=== PATIENT | female | born 1995 | race Caucasian/White ===

== ENCOUNTER 2018-12-23 09:37 | Observation (INO) | payer OTHER ==
[2019-01-25] MEDS ORDERED: GLYB2.5T2 PO (18:36)
[2019-01-29] MEDS ORDERED: DOCU-153 PO (10:14)
[2019-01-29] MEDS ORDERED: OXYC1TAB15 PO (10:14)
[2019-01-29] MEDS ORDERED: IBUP-1027 PO (10:14)
== END 2018-12-23 10:45 | disposition home or self-care (01) ==
LOC: 3 SO LND 09:37
PROVIDERS: ADMIT Obstetrics & Gynecology; ATTEND Obstetrics & Gynecology
DX: O24.410 Gestational diabetes mellitus in pregnancy, diet controlled (principal); Z3A.35 35 weeks gestation of pregnancy
CPT/HCPCS: G0378; G0379; 59025

== ENCOUNTER 2018-12-30 11:09 | Observation (INO) | payer OTHER | END 2018-12-30 12:43 | disposition home or self-care (01) | LOC: 3 SO LND 11:09 | PROVIDERS: ADMIT Obstetrics & Gynecology; ATTEND Obstetrics & Gynecology | DX: O24.419 Gestational diabetes mellitus in pregnancy, unspecified control (principal); Z3A.35 35 weeks gestation of pregnancy | CPT/HCPCS: G0378; G0379; 59025 ==

== ENCOUNTER 2019-01-06 10:45 | Observation (INO) | payer OTHER ==
--- NOTE | 2019-01-06 12:37 | RAD ---
BIOPHY PRO W/O NON STR ADD' History: Gestational diabetes Comparison: None. Findings: Multiple sonographic images from a biophysical profile are submitted. There was 8 of 8 scoring for the biophysical profile which assessed for breathing movements, motion, tone, amniotic fluid volume. Estimated ADAM was 15.3 cm. There is cephalic presentation of the single intrauterine fetus. There is anterior placenta. Length of exam was reported at 15 minutes. heart rate 157 bpm. Biometry data are as follows: Biparietal diameter 9.36 cm corresponds 38 weeks 1 day Head circumference 33.38 cm corresponds with 38 weeks 1 day Abdominal circumference 34.03 cm corresponds with 38 weeks 0 days Femur length 7.59 cm corresponds with 38 weeks 6 days Estimated weight 3420 g +/- 506 g corresponding with the 78th percentile Adjusted ultrasound age 38 weeks 2 days with estimated delivery date of 01/18/2019 LMP age 36 weeks 3 days with estimated delivery date of 01/31/2019 HC/AC ratio 0.98. Impression: 1. There was 8 of 8 scoring for the biophysical profile. There is a single viable intrauterine fetus in cephalic presentation, adjusted ultrasound age 38 weeks 2 days. Electronically signed by: Ismael Carrasquillo MD (01/06/2019 12:34 PM) [id number]
[2019-01-25] MEDS ORDERED: GLYB2.5T2 PO (18:36)
[2019-01-29] MEDS ORDERED: IBUP-1027 PO (10:14)
[2019-01-29] MEDS ORDERED: OXYC1TAB15 PO (10:14)
[2019-01-29] MEDS ORDERED: DOCU-153 PO (10:14)
== END 2019-01-06 12:22 | disposition home or self-care (01) ==
LOC: 3 SO LND 10:45
PROVIDERS: ADMIT Obstetrics & Gynecology; ATTEND Obstetrics & Gynecology
DX: O24.425 Gestational diabetes mellitus in childbirth, controlled by oral hypoglycemic drugs (principal); Z3A.36 36 weeks gestation of pregnancy
CPT/HCPCS: 76819; G0378; G0379; 59025

== ENCOUNTER 2019-01-13 11:12 | Observation (INO) | payer OTHER ==
[2019-01-13] MEDS ORDERED: IV RINGERS,LACTATED 1000ML 1,000 ML IV SCH (11:16)
--- NOTE | 2019-01-13 16:56 | RAD ---
Biophysical profile: Clinical indications: Gestational diabetes. Findings: A single intrauterine is present in the cephalic position. heart rate is 182. breathing movements: 2. motion: 2. tone: 2. Amniotic fluid volume: 2. Therefore, the biophysical profile score is 8 out of 8. Cervical length-not visualized. ADAM using the 4 quadrant method is 16.6 cm. Impression: Biophysical profile score is 8 out of 8. Electronically signed by: Ranjith Camacho MD (01/13/2019 4:53 PM) [facility]
== END 2019-01-13 14:30 | disposition home or self-care (01) ==
LOC: 3 SO LND 11:12
PROVIDERS: ADMIT Obstetrics & Gynecology; ATTEND Obstetrics & Gynecology
DX: O24.419 Gestational diabetes mellitus in pregnancy, unspecified control (principal); Z3A.37 37 weeks gestation of pregnancy
CPT/HCPCS: 76819; G0378; G0379; 59025

== ENCOUNTER 2019-01-19 15:56 | Observation (INO) | payer OTHER ==
[2019-01-19] MEDS ORDERED: IV RINGERS,LACTATED 1000ML 1,000 ML IV SCH (16:30)
--- NOTE | 2019-01-19 17:54 | RAD ---
BIOPHY PRO W/O NON STR ADD', OB LIMITED History: Gestational diabetes Comparison: January 13, 2019 Findings: Multiple sonographic images of the single intrauterine fetus and images from a biophysical profile are submitted. There was 6 of 8 scoring for the biophysical profile, 0 of 2 scoring for breathing movements. Otherwise there was 2 of 2 scoring for motion, head, and amniotic fluid volume. Reportedly exam lasted about 30 minutes. heart rate was 130 bpm. There is anterior placenta. There is cephalic presentation of the single intrauterine fetus. Estimated ADAM 15.6 cm. anatomy was not fully evaluated. Biometry data are as follows: Biparietal diameter 9.73 cm corresponds with 39 weeks 6 days Head circumference 34.46 cm corresponds with 39 weeks 6 days Abdominal circumference 35.42 cm corresponds with 39 weeks 2 days Femur length 7.66 cm corresponds with 39 weeks 1 day HC/AC ratio within normal limits 0.97 Estimated weight 3782 g +/- 560 g Adjusted ultrasound age 39 weeks 4 days with estimated delivery date by ultrasound 01/22/2019 LMP age 38 weeks 2 days with estimated delivery date 01/31/2019. Impression: 1. There is a single viable intrauterine fetus. There was 6 of 8 scoring for the biophysical profile, 0 of 2 scoring for the breathing movements. Electronically signed by: Ismael Carrasquillo MD (01/19/2019 5:52 PM) [facility]
[2019-01-25] MEDS ORDERED: GLYB2.5T2 PO (18:36)
== END 2019-01-19 18:10 | disposition home or self-care (01) ==
LOC: 3 SO LND 15:56
PROVIDERS: ADMIT Obstetrics & Gynecology; ATTEND Obstetrics & Gynecology
DX: Z34.83 Encounter for supervision of other normal pregnancy, third trimester (principal); Z3A.38 38 weeks gestation of pregnancy
CPT/HCPCS: 76815; 76819; G0378; G0379; 59025

== ENCOUNTER 2019-01-21 08:55 | Observation (INO) | payer OTHER ==
[2019-01-21] MEDS ORDERED: IV RINGERS,LACTATED 1000ML 1,000 ML IV SCH (09:00)
[2019-01-21] MEDS ORDERED: ONDANSETRON PF 4 MG/2 ML VIAL. IV PRN (09:00)
[2019-01-21] MEDS ORDERED: ACETAMINOPHEN 325 MG TABLET. PO PRN (09:00)
--- NOTE | 2019-01-21 10:34 | RAD ---
Examination: BIOPHY PRO W/O NON STR ADD' History: Gestational diabetes Comparison/Correlation: 01/19/2019 biophysical profile Findings: Biophysical profile score of breathing movements, motion, tone, and amniotic fluid are each 2 out of 2. Total score of 8 out of 8. Cephalic lie is present. Amniotic fluid index of 8.2 is present. Anterior location of the placenta is noted. Impression: Biophysical profile score of 8/8. Amniotic fluid index of 8.2 is noticeably decreased since the prior exam where it was 15.6. Electronically signed by: Den Robins MD (01/21/2019 10:31 AM) [facility]
[2019-01-25] MEDS ORDERED: GLYB2.5T2 PO (18:36)
== END 2019-01-21 10:12 | disposition home or self-care (01) ==
LOC: 3 SO LND 08:55
PROVIDERS: ADMIT Obstetrics & Gynecology; ATTEND Obstetrics & Gynecology
DX: O24.419 Gestational diabetes mellitus in pregnancy, unspecified control (principal); Z3A.38 38 weeks gestation of pregnancy
CPT/HCPCS: 76819; G0378; G0379; 59025

== ENCOUNTER 2020-03-04 16:51 | Emergency (ER) | payer OTHER, BC ==
[~2020-03-04] VITALS: Ht 162.6 cm; Wt 90.1 kg
[~2020-03-04 16:51] MED LIST: DOCU-153 PO; GLYB2.5T2 PO; IBUP-1027 PO; OXYC1TAB15 PO
--- NOTE | 2020-03-04 17:39 | RAD ---
INDICATION: Reason: L knee deformity after fall, s/p reduction / Spl. Instructions: / History: COMPARISON: None. IMPRESSION: Left knee: 3 views obtained. Limited evaluation secondary to difficulty with positioning secondary to patient's injury. Subtle lucency at the lower pole the patella. Would correlate with point tendernes s given that an impaction fracture could have this appearance. There is adjacent edema in Hoffa's fat pad. There is also a subtle step-off at the medial tibial plateau therefore a fracture at this site is not excluded. Electronically signed by: Farhat Duong MD (03/04/2020 5:37 PM) [id number]
[2020-03-04] MEDS ORDERED: HYDR15SO6 PO (18:59)
--- NOTE | 2020-03-04 18:59 | ED.ADGEN ---
Past Medical History Past Medical History: No Pertinent History Past Surgical History: Smoking Status: Current Every Day Smoker Alcohol Use: Rarely General Adult EDM: Chief Complaint: LOWEREXTREMITY INJURY HPI: HPI: Patient is a 24 year old female who presents emergency department via EMS with complaints of left knee pain in the left patella dislocation. Patient was at work when she slipped in the parking lot and fell. According to EMS this [place] ppened approximately 1 hour prior to arrival. Patient denies any loss of consciousness, head injury, or neck pain from the fall. She reports being unable to bear weight since the injury happened. Patient denies any back pain, upper extremity pain, or right leg pain. She currently rates her pain a 7 out of 10 on the pain scale, EMS reports that the patient was given 100 mcg of f entanyl while in route to the ER. Patient's pain was initially a 10, after the fentanyl it was down to 5/10 but increased to a 7/10 after being transferred over to the ER bed. Patient denies any decreased sensation of the affected extremity. Review of Systems: Review of Systems: Complete ROS is negative unless otherwise noted in HPI. Allergies: Allergies: Allergies Coded Allergies Type Severity Reaction Last Updated Verified No Known Drug Allergies 01/06/19 No Physical Exam: PE: See Above Constitutional: Well developed, well nourished, moderate distress, nontoxic appearance, obese HENT: Normocephalic, atraumatic, bilateral external ears normal, nose normal. [] Eyes: PERRLA, EOMI, conjunctiva normal, no discharge. [] Neck: Normal range of motion, no stridor. [] Cardiovascular:Heart rate regular rhythm Lungs & Thorax: Respirations even and unlabored, no retractions, no respiratory distress Skin: Warm, dry, no erythema, no rash. [] Extremities: Left knee: Obvious deformity to the patella, patella lies over the lateral aspect of the left leg, sensation intact, 2+ pedal and posterior tibial pulses, 2+ popliteal pulse, no cyanosis, ROM limited due to injury, 1+ edema Left hip, no bony tenderness to palpation, no rotation of the affected extrem ity, unable to assess for shortening due to position of comfort Neurologic: Alert and oriented X 3, no focal deficits noted. [] Psychologic: Affect normal, judgement normal, mood normal. [] Current Patient Data: Vital Signs: Vital Signs Date Time Temp Pulse Resp B/P (MAP) Pulse Ox O2 Delivery O2 Flow Rate FiO2 03/04/20 17:02 97.7 90 18 147/97 (114) 99 Room Air 97.7 EKG: EKG: [] Heart Score: Risk Factors: Risk Factors: DM, Current or recent (<one month) smoker, HTN, HLP, family history of CAD, obesity. Risk Scores: Score 0 - 3: 2.5% MACE over next 6 weeks - Discharge Home Score 4 - 6: 20.3% MACE over next 6 weeks - Admit for Clinical Observation Score 7 - 10: 72.7% MACE over next 6 weeks - Early Invasive Strategies Radiology/Procedures: Radiology/Procedures: On arrival to the emergency department the patient was then a great amount of distress. After my physical exam I offered to reduce the dislocated patella before taking images, the patient was in agreement with this plan. I was able to reduce the dislocated patella by applying light pressure laterally and gently extending the leg. The patella went back into normal alignment without any complications. The patient reported feeling better after the joint was reduced. Postreduction x-rays were then ordered. Patient complained of swelling and pain superior to the patella following the reduction. She denies any pain to her leg distal to the patella. However patient states she is still unable to bear weight on her left leg due to pain. [] PROCEDURE: KNEE LEFT 3V INDICATION: Reason: L knee deformity after fall, s/p reduction / Spl. Instructions: / History: COMPARISON: None. IMPRESSION: Left knee: 3 views obtained. Limited evaluation secondary to difficulty with positioning secondary to patient's injury. Subtle lucency at the lower pole the patella. Would correlate with point tenderness given that an impaction fracture could have this appearance. There is adjacent edema in Hoffa's fat pad. There is also a subtle step-off at the medial tibial plateau therefore a fracture at this site is not excluded. Electronically signed by: Farhat Duong MD (03/04/2020 5:37 PM) [id number] Course & Med Decision Making: Course & Med Decision Making Pertinent Labs and Imaging studies reviewed. (See chart for details) 1840-I spoke with orthopedic physician distribution operations manager Dr. Riojas who also reviewed the patient's x-rays. Dr. Riojas did not agree with the radiologist interpretation. The patient was placed in a knee immobilizer and provided with crutches. She was encouraged to remain nonweightbearing until follow-up with Dr. Riojas's office next week. Prescription will be written for hydrocodone elixir as the patient is unable to swallow pills. Dr. Riojas is in agreement with the plan of care. I discussed the results in the plan of care with the patient. I encouraged her to follow-up with Dr. Riojas. Prescription was written for hydrocodone elixir as stated above. Patient was provided with Dr. Riojas's information for follow-up. Just before discharge the patient stated that her left hip felt tight, she denies any bony tenderness with palpation, I did not appreciate any obvious deformity or or crepitus of the patient's left hip. She stated it felt like her left hip needs to pop. I offered to x-ray the patient's left hip the patient declined x-rays at this time, stated she wanted to go home. The patient and her father verbalized an understanding of home care, medications, follow-up, and return to ED instructions and were in agreement with the plan of care. [] Dragon Disclaimer: Dragon Disclaimer: This electronic medical record was generated, in whole or in part, using a voice recognition dictation system. Departure Departure Impression: Primary Impression: Dislocation of left patella Disposition: 01 DC HOME SELF CARE/HOMELESS Condition: STABLE Referrals: NO PCP (PCP) LADY RIOJAS MD Patient Instructions: Patellar Dislocation Additional Instructions: Fill prescription(s) and use as directed. Recommend application of ice, elevation, and rest of affected extremity. Wear the knee immobilizer that was placed and use the crutches provided until follow up appointment with Dr. Riojas next week. Return to the ER if your symptoms worsen. Scripts Hydrocodone Bit/Acetaminophen (HYDROCODONE-APAP 7.5-325/15 SOLN ) 15 Ml Solution 10 ML PO PRN Q4-6HRS PRN for pain MDD 25 Milliliter(s) for 5 Days, #100 ML 0 Refills Prov: LOUANN STAPLETON APRN 03/04/20 Problem Qualifiers Primary Impression: Dislocation of left patella Encounter type: initial encounter Qualified Codes: S83.005A - Unspecified dislocation of left patella, initial encounter LOUANN STAPLETON GOVERNMENT RELATIONS ANALYST Mar 04, 2020 18:59
[2020-03-04 19:51] VITALS: BP 146/82
== END 2020-03-04 19:28 | disposition home or self-care (01) ==
LOC: ER 16:51
DX: S83.095A Other dislocation of left patella, initial encounter (principal); R20.2 Paresthesia of skin; F17.200 Nicotine dependence, unspecified, uncomplicated; Z98.890 Other specified postprocedural states; W01.0XXA Fall on same level from slipping, tripping and stumbling without subsequent striking against object, initial encounter; Y93.89 Activity, other specified; Y92.89 Other specified places as the place of occurrence of the external cause; Y99.8 Other external cause status
CPT/HCPCS: 29505; 73562; 99283